=== PATIENT | female | born 1995 | race Caucasian/White ===

== ENCOUNTER 2017-09-02 15:34 | Emergency (ER) | payer OTHER ==
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
[2017-09-02] MEDS ORDERED: ACETAMINOPHEN 325 MG TABLET PO ONE (16:24)
[2017-09-02] MEDS ORDERED: IBUPROFEN 800 MG TABLET PO ONE (16:24)
[2017-09-02 19:46] VITALS: BP 128/88
== END 2017-09-02 19:45 | disposition home or self-care (01) ==
LOC: ER 15:34
DX: S16.1XXA Strain of muscle, fascia and tendon at neck level, initial encounter (principal); V49.60XA Unspecified car occupant injured in collision with unspecified motor vehicles in traffic accident, initial encounter; M54.12 Radiculopathy, cervical region; M54.2 Cervicalgia; F17.200 Nicotine dependence, unspecified, uncomplicated; G93.2 Benign intracranial hypertension; Z98.2 Presence of cerebrospinal fluid drainage device
CPT/HCPCS: 99283; L0120

== ENCOUNTER 2017-09-07 13:13 | Emergency (ER) | payer OTHER ==
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
[2017-09-07 22:12] VITALS: BP 121/83
== END 2017-09-07 22:12 | disposition home or self-care (01) ==
LOC: ER 13:13
DX: G24.3 Spasmodic torticollis (principal); M54.12 Radiculopathy, cervical region; F17.210 Nicotine dependence, cigarettes, uncomplicated; Z98.2 Presence of cerebrospinal fluid drainage device
CPT/HCPCS: 72141; 99283